=== PATIENT | female | born 1935 | race Two or more races ===

== ENCOUNTER 2020-02-13 12:02 | Emergency (ER) | payer OTHER ==
[~2020-02-13] VITALS: Ht 157.5 cm; Wt 63.5 kg
[2020-02-13] MEDS ORDERED: NORVASC2.5 M1 PO (12:29)
[2020-02-13] MEDS ORDERED: METFORMIN HCL500 M3 PO (12:30)
== END 2020-02-13 20:01 | disposition home or self-care (01) ==
LOC: ER 12:02 → EDBD 12:08 → ER 12:08
DX: K59.09 Other constipation (principal); N39.0 Urinary tract infection, site not specified; G30.8 Other Alzheimer's disease